=== PATIENT | female | born 1980 | race African-American/Black ===

== ENCOUNTER 2016-10-02 14:15 | Emergency (ER) | payer OTHER ==
[~2016-10-02] VITALS: Ht 157.5 cm; Wt 74.8 kg
[2016-10-02] MEDS ORDERED: LORA-434 PO (15:18)
--- NOTE | 2016-10-02 15:18 | PHYS DOC ---
Adult General Chief Complaint Chief Complaint: SHORTNESS OF BREATH HPI HPI Patient is a 35 year old female who presents with complaint of shortness of breath and chest pain. The patient states that she has been getting these symptoms when she becomes upset or agitated. Patient states that she has been having difficulty with a former boyfriend and states that she has been dealing with feelings of anger and agitation for quite some time. Patient states however over the past 3-4 days she has been noticing pain and shortness of breath "when I'm yelling." Patient states that at rest she is experiencing no symptoms, however she states that she starts getting worsening symptoms when she becomes upset. Patient is not on any medications at this time and denies any previous history of heart or lung problems. Patient states that as she starts thinking about things that cause her to get angry she is currently starting to feel short of breath. Patient denies any fevers or recent illnesses. Patient states that this time she is not experiencing any chest pain. The patient is concerned about her symptoms and thus came into the emergency department for evaluation today. Review of Systems Review of Systems Constitutional: Anxiety, agitation, Denies fever or chills [] Eyes: Denies change in visual acuity, redness, or eye pain [] HENT: Denies nasal congestion or sore throat [] Respiratory: Intermittent shortness of breath, denies cough [] Cardiovascular: Intermittent chest pain, denies edema [] GI: Denies abdominal pain, nausea, vomiting, bloody stools or diarrhea [] : Denies dysuria or hematuria [] Musculoskeletal: Denies back pain or joint pain [] Integument: Denies rash or skin lesions [] Neurologic: Denies headache, focal weakness or sensory changes [] Allergies Allergies Allergies Coded Allergies Type Severity Reaction Last Updated Verified Penicillins Adverse Reaction Intermediate NAUSEA/VOMITING 10/02/16 Yes Physical Exam Physical Exam Constitutional: Well developed, well nourished, appears anxious. [] HENT: Normocephalic, atraumatic, bilateral external ears normal, oropharynx moist, no oral exudates, nose normal. [] Eyes: PERRLA, EOMI, conjunctiva normal, no discharge. [] Neck: Normal range of motion, no tenderness, supple, no stridor. [] Cardiovascular:Heart rate regular rhythm, no murmur [] Lungs & Thorax: Bilateral breath sounds clear to auscultation [] Abdomen: Bowel sounds normal, soft, no tenderness, no masses, no pulsatile masses. [] Skin: Warm, dry, no erythema, no rash. [] Back: No tenderness, no CVA tenderness. [] Extremities: No tenderness, no cyanosis, no clubbing, ROM intact, no edema. [] Neurologic: Alert and oriented X 3, normal motor function, normal sensory function, no focal deficits noted. [] Current Patient Data Vital Signs Vital Signs Date Time Temp Pulse Resp B/P (MAP) Pulse Ox O2 Delivery O2 Flow Rate FiO2 10/02/16 15:26 86 18 144/92 (109) 98 Room Air 10/02/16 14:57 98.6 98.6 EKG EKG Rhythm strip interpretation by me: Heart rate 85, normal sinus rhythm, normal intervals, no ectopy Of note, as patient would express feelings of anger and frustration, her heart rate would increase to 115 bpm. As soon as the patient would calm down her heart rate would return back to the mid 80s. [] Radiology/Procedures Radiology/Procedures Not performed [] Course & Med Decision Making Course & Med Decision Making Pertinent Labs and Imaging studies reviewed. (See chart for details) I spoke extensively with the patient regarding her symptoms and it appears that her symptoms seem to appear when she becomes agitated and frustrated. After speaking with the patient, she does agree that social stressors and other problems in her life are likely contributing to her symptoms. After speaking with the patient I did offer her labs and imaging to rule out any other medical causes for the patient's symptoms. The patient stated that she did not want this to be done as she was concerned about the cost of the tests. I did stress that if she felt her symptoms were serious I would be happy to have these tests done to ensure no other medical causes for her symptoms and stated that the hospital would be able to work with her financially for any tests that were rendered. The patient declined any testing but did agree to initiation of medication for her anxiety to help calm her. Patient prescribed Ativan to use as needed for symptoms. Advise close follow-up with primary care and referred patient to the [facility] family practice group for follow-up in one week. Advised return emergency department for any worsening symptoms. Patient voiced understanding and in agreement with treatment plan. Dragon Disclaimer Dragon Disclaimer This electronic medical record was generated, in whole or in part, using a voice recognition dictation system. Departure Departure Impression: Primary Impression: Hypertension Additional Impression: Anxiety Disposition: 01 HOME, SELF-CARE Condition: IMPROVED Patient Instructions: Anxiety and Panic Attacks, Hypertension Additional Instructions: Follow-up with your primary doctor in 1 week. Return to the emergency department for any worsening symptoms. Scripts Lorazepam (ATIVAN) 1 Mg Tablet 1 MG PO TID Y for ANXIETY / AGITATION, #30 TAB Prov: SHANDA VILLALOBOS MD 10/02/16 Problem Qualifiers Primary Impression: Hypertension Hypertension type: other secondary hypertension Qualified Codes: I15.8 - Other secondary hypertension SHANDA VILLALOBOS MD October 02, 2016 15:18
[2016-10-02 15:26] VITALS: BP 144/92
== END 2016-10-02 16:16 | disposition home or self-care (01) ==
LOC: ER 15:38
DX: I15.8 Other secondary hypertension (principal); F41.9 Anxiety disorder, unspecified; Z88.0 Allergy status to penicillin
CPT/HCPCS: 99283

== ENCOUNTER 2019-04-24 10:18 | Emergency (ER) | payer OTHER ==
[~2019-04-24] VITALS: Ht 157.5 cm; Wt 88.9 kg
[~2019-04-24 10:18] MED LIST: LORA-434 PO
[2019-04-24] MEDS ORDERED: IV NORMAL SALINE 1000ML BAG 1,000 ML IV ONE (10:45)
[2019-04-24] MEDS ORDERED: ONDANSETRON PF 4 MG/2 ML VIAL. IV ONE (10:45)
[2019-04-24 11:39] LABS: BASO % 0 % (0-3); EOS # 0.2 x10^3/uL (0.0-0.7); EOS % 4 % (0-3); LYMPH # 2.4 x10^3/uL (1.0-4.8); LYMPH % 43 % (24-48); MEAN CORPUSCULAR HEMOGLOBIN 30 pg (25-35); MEAN CORPUSCULAR HGB CONC 34 g/dL (31-37); MEAN CORPUSCULAR VOLUME 87 fL (79-100); MONO # 0.8 x10^3/uL (0.0-1.1); MONO % 14 % (0-9); NEUT # 2.2 x10^3/uL (1.8-7.7); NEUT % 39 % (31-73); PLATELET COUNT 170 x10^3/uL (140-400); RED BLOOD COUNT 4.71 x10^6/uL (3.50-5.40); RED CELL DISTRIBUTION WIDTH 14.4 % (11.5-14.5); WHITE BLOOD COUNT 5.6 x10^3/uL (4.0-11.0)
[2019-04-24 11:40] LABS: CREATININE 0.8 mg/dL (0.6-1.0); GFR 97.1; POTASSIUM 3.4 mmol/L (3.5-5.1)
[2019-04-24 11:42] LABS: BILIRUBIN,URINE NEGATIVE (NEG); CLARITY,URINE CLEAR; COLOR,URINE AMBER; NITRITE,URINE NEGATIVE (NEG); PROTEIN,URINE NEGATIVE (NEG-TRACE)
[2019-04-24 11:45] LABS: ALBUMIN 3.4 g/dL (3.4-5.0); ALBUMIN/GLOBULIN RATIO 0.9 (1.0-1.7); MAGNESIUM 1.9 mg/dL (1.8-2.4); TOTAL BILIRUBIN 0.4 mg/dL (0.2-1.0); TOTAL PROTEIN 7.2 g/dL (6.4-8.2)
[2019-04-24 12:00] LABS: SQUAMOUS EPITHELIAL CELL,UR MANY /LPF
[2019-04-24 12:01] LABS: BACTERIA,URINE FEW /HPF (0-FEW); RBC,URINE OCC /HPF (0-2)
[2019-04-24] MEDS ORDERED: ONDA4TAB11 PO (12:25)
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
[2019-04-24 12:30] VITALS: BP 142/88
== END 2019-04-24 12:30 | disposition home or self-care (01) ==
LOC: ER 10:18
DX: R11.2 Nausea with vomiting, unspecified (principal); R19.7 Diarrhea, unspecified; R63.0 Anorexia; I10 Essential (primary) hypertension; F17.200 Nicotine dependence, unspecified, uncomplicated; Z90.81 Acquired absence of spleen; Z88.0 Allergy status to penicillin
CPT/HCPCS: 36415; 80053; 81001; 81025; 83690; 83735; 85025; 96361; 96374; 99284; J2405; J7030